=== PATIENT | female | born 1995 | race American Indian/Alaskan Native ===

== ENCOUNTER 2020-07-18 07:20 | Emergency (ER) | payer SELFPAY ==
[2020-07-18 07:46] VITALS: BP 112/46
[2020-07-18] MEDS ORDERED: HYDROcodone/ACETAMINOPHEN 5-325 MG TAB PO STA (09:05)
[2020-07-18] MEDS ORDERED: predniSONE 50 MG TAB PO STA (09:05)
--- NOTE | 2020-07-18 09:43 | Emergency Department Report ---
ED General Adult HPI - General Chief complaint: Abdominal Pain Stated complaint: ABD PAIN/ASTHMA Time Seen by Provider: 07/18/20 09:04 Source: patient Mode of arrival: Ambulatory Limitations: No Limitations - History of Present Illness Initial comments: 24-year-old -[place] female, just relocated from [facility] with a known history of asthma and dysmenorrhea/mittelschmerz presents emergency department complaining of running out of her naproxen 500 which is the only medication that helps her pelvic pain since running out of medication she been having a significant amount of pain which she feels is triggering her asthma and causing her to use her asthma pump and increased amount of times over the last few days. She seeks to have her medications feel reports no possibility of any infectious processes or . States that she knows what the issue is and just needs to get it taken care of until she finds a primary care provider in this area. Radiation: non-radiation Severity scale (0 -10): 10 Quality: dull Consistency: constant Improves with: none Worsens with: none Treatments Prior to Arrival: none - Related Data Previous Rx's Medication Instructions Recorded Last Taken Type Ketorolac [Toradol] 10 mg PO Q6H PRN #15 tablet 06/05/20 Unknown Rx cephALEXin [Keflex] 500 mg PO Q6HR #40 capsule 06/05/20 Unknown Rx methOCARBAMOL [Robaxin TAB] 500 mg PO Q6H #20 tablet 06/05/20 Unknown Rx Naproxen [Naprosyn] 500 mg PO BID PRN #20 tablet 07/18/20 Unknown Rx Allergies Allergy/AdvReac Type Severity Reaction Status Date / Time No Known Allergies Allergy Unverified 06/05/20 08:57 ED Review of Systems ROS: Stated complaint: ABD PAIN/ASTHMA Other details as noted in HPI Comment: All other systems reviewed and negative ED Past Medical Hx - Past Medical History Previous Medical History?: Yes Hx Kidney Stones: Yes Hx Asthma: Yes - Surgical History Past Surgical History?: No - Social History Smoking Status: Never Smoker Substance Use Type: None - Medications Home Medications: Home Medications Medication Instructions Recorded Confirmed Last Taken Type Ketorolac [Toradol] 10 mg PO Q6H PRN #15 tablet 06/05/20 Unknown Rx cephALEXin [Keflex] 500 mg PO Q6HR #40 capsule 06/05/20 Unknown Rx methOCARBAMOL [Robaxin TAB] 500 mg PO Q6H #20 tablet 06/05/20 Unknown Rx Naproxen [Naprosyn] 500 mg PO BID PRN #20 tablet 07/18/20 Unknown Rx ED Physical Exam - General Limitations: No Limitations General appearance: alert, in no apparent distress - Head Head exam: Present: atraumatic, normocephalic - Eye Eye exam: Present: normal appearance, PERRL, EOMI Pupils: Present: normal accommodation - ENT ENT exam: Present: normal exam, normal orophraynx, mucous membranes moist, TM's normal bilaterally - Neck Neck exam: Present: normal inspection, full ROM - Respiratory Respiratory exam: Present: normal lung sounds bilaterally. Absent: respiratory distress, wheezes, rales, chest wall tenderness, accessory muscle use, decreased breath sounds, prolonged expiratory - Cardiovascular Cardiovascular Exam: Present: regular rate, normal rhythm. Absent: systolic murmur, diastolic murmur, rubs, gallop - GI/Abdominal GI/Abdominal exam: Present: soft, tenderness, normal bowel sounds - Extremities Exam Extremities exam: Present: normal inspection - Back Exam Back exam: Present: normal inspection - Neurological Exam Neurological exam: Present: alert, oriented X3, CN II-XII intact, normal gait - Psychiatric Psychiatric exam: Present: normal affect, normal mood - Skin Skin exam: Present: warm, dry, intact, normal color. Absent: rash ED Course Vital Signs 07/18/20 07:44 Temperature 98 F Pulse Rate 82 Respiratory 20 Rate Blood Pressure 112/46 O2 Sat by Pulse 99 Oximetry ED Medical Decision Making - Medical Decision Making 24-year-old Slov[place] female with dysmenorrhea presents emergency department co mplaining of asthma flareup. Maintaining normal saturation has a normal respiratory evaluation speaking in full sentences with no limitations. [facility] States she does have all the necessary asthma medications at home. Plan is to provide a prescription for the naproxen and advised patient to follow-up and establish with a primary care provider and a local [facility] [employer] Critical care attestation.: If time is entered above; I have spent that time in minutes in the direct care of this critically ill patient, excluding procedure time. ED Disposition Clinical Impression: Dysmenorrhea Disposition: [id number] TO HOME OR SELFCARE Is pt being admited?: No Does the pt Need Aspirin: No Condition: Stable Instructions: Abdominal Pain (ED), Dysmenorrhea (ED) Prescriptions: Naproxen [Naprosyn] 500 mg PO BID PRN #20 tablet PRN Reason: menstral pain Referrals: PRIMARY CARE, [Primary Care Provider] - 3-5 Days [facility] [Provider Group] - 3-5 Days
== END 2020-07-18 10:09 | disposition home or self-care (01) ==
LOC: ED 07:20
DX: N94.6 Dysmenorrhea, unspecified (principal); J45.909 Unspecified asthma, uncomplicated; Z79.899 Other long term (current) drug therapy; Z87.442 Personal history of urinary calculi
CPT/HCPCS: 99282; J7512